=== PATIENT | male | born 1955 | race Caucasian/White ===

== ENCOUNTER → 2023-10-17 11:26 | Outpatient (REF) | payer MEDICARE, OTHER, SELFPAY | LOC: RAD 11:26 | PROVIDERS: ATTENDING PHYSICIAN Family Medicine | DX: M54.6 Pain in thoracic spine (principal); K59.00 Constipation, unspecified | CPT/HCPCS: 72072 ==

== ENCOUNTER → 2023-10-19 08:09 | Outpatient (REF) | payer MEDICARE, OTHER, SELFPAY ==
[2023-10-19 09:00] LABS: % Basophils 0.9 % (0-2); % Eosinophils 1.3 % (0-6); % Immature Granulocytes 0.6 % (0-0.5); % Lymphocytes 25.7 % (20.5-51.1); % Monocytes 9.8 % (1.7-9.3); % Neutrophils 61.7 % (42.2-75.2); Absolute Basophils 0.1 10^3/uL (0-0.2); Absolute Eosinophils 0.1 10^3/uL (0-0.7); Absolute Lymphocytes 1.4 10^3/uL (1.2-3.4); Absolute Monocytes 0.5 10^3/uL (0.1-0.6); Absolute Neutrophils 3.3 10^3/uL (1.4-6.5); Hematocrit 44.2 % (39.0-52.0); Hemoglobin 15.4 g/dL (13.0-18.0); Mean Corp Hgb Conc. 34.8 g/dL (33.0-37.0); Mean Platelet Volume 9.3 fL (7.4-10.4); Nucleated Red Blood Cells % 0 % (-); Platelet Count 239 10^3/uL (130-400); Red Blood Cell Count 5.14 10^6/uL (4.70-6.10); Red Cell Dist. Width 12.1 % (11.5-14.5); White Blood Cell Count 5.3 10^3/uL (4.8-10.8)
[2023-10-19 09:33] LABS: ALT (SGPT) 51 U/L (0-50); AST (SGOT) 38 U/L (17-59); Albumin 4.6 g/dl (3.5-5.0); Alkaline Phosphatase 68 U/L (38-126); Blood Urea Nitrogen 14 mg/dl (9-20); Calcium 9.4 mg/dl (8.4-10.2); Carbon Dioxide 24 mmol/L (22-30); Chloride 103 mmol/L (98-107); Glucose 131 mg/dl (70-99); HDL Cholesterol 52 mg/dl; Potassium 3.8 mmol/L (3.5-5.1); Sodium 136 mmol/L (135-145); Total Bilirubin 1.3 mg/dl (0.2-1.3); Total Cholesterol 109 mg/dl (50-199); Total Protein 7.2 g/dl (6.3-8.2); eGFR > 60.00
[2023-10-19 09:43] LABS: LDL Cholesterol, Calculated 42 mg/dl; Triglyceride 75 mg/dl (10-149); Very Low Density Lipoprotein 15 mg/dl (0-30)
[2023-10-19 10:02] LABS: PSA, Total - Screen 0.64 ng/ml (0.0-4.0)
== END ==
LOC: REG 08:09
PROVIDERS: ATTENDING PHYSICIAN Family Medicine
DX: M54.6 Pain in thoracic spine (principal); K59.00 Constipation, unspecified; E11.9 Type 2 diabetes mellitus without complications
CPT/HCPCS: 36415; 80053; 80061; 85025; G0103

== ENCOUNTER → 2023-10-27 16:53 | Outpatient (REF) | payer MEDICARE, OTHER, SELFPAY | LOC: RAD 16:53 | PROVIDERS: ATTENDING PHYSICIAN Family Medicine | DX: M54.6 Pain in thoracic spine (principal); K59.00 Constipation, unspecified | CPT/HCPCS: 76775 ==

== ENCOUNTER → 2023-11-28 10:28 | Outpatient (REF) | payer MEDICARE, OTHER, SELFPAY ==
[2023-11-28 11:35] LABS: % Basophils 0.8 % (0-2); % Eosinophils 1.6 % (0-6); % Immature Granulocytes 0.8 % (0-0.5); % Lymphocytes 15.5 % (20.5-51.1); % Monocytes 8.8 % (1.7-9.3); % Neutrophils 72.5 % (42.2-75.2); Absolute Basophils 0.1 10^3/uL (0-0.2); Absolute Eosinophils 0.1 10^3/uL (0-0.7); Absolute Immature Granulocytes 0.1 10^3/uL (0-0.05); Absolute Lymphocytes 1.3 10^3/uL (1.2-3.4); Absolute Monocytes 0.8 10^3/uL (0.1-0.6); Absolute Neutrophils 6.1 10^3/uL (1.4-6.5); Hematocrit 44.9 % (39.0-52.0); Hemoglobin 14.9 g/dL (13.0-18.0); Mean Corp Hgb Conc. 33.2 g/dL (33.0-37.0); Mean Corpuscular Volume 90.3 fL (80.0-94.0); Mean Platelet Volume 9.5 fL (7.4-10.4); Nucleated Red Blood Cells % 0 % (-); Platelet Count 230 10^3/uL (130-400); Red Blood Cell Count 4.97 10^6/uL (4.70-6.10); Red Cell Dist. Width 13.2 % (11.5-14.5); White Blood Cell Count 8.5 10^3/uL (4.8-10.8)
[2023-11-28 12:10] LABS: ALT (SGPT) 60 U/L (0-50); AST (SGOT) 32 U/L (17-59); Albumin 4.5 g/dl (3.5-5.0); Alkaline Phosphatase 79 U/L (38-126); Blood Urea Nitrogen 15 mg/dl (9-20); Calcium 9.2 mg/dl (8.4-10.2); Carbon Dioxide 22 mmol/L (22-30); Chloride 104 mmol/L (98-107); Glucose 138 mg/dl (70-99); HDL Cholesterol 64 mg/dl; LDL Cholesterol, Calculated 120 mg/dl; Potassium 4.3 mmol/L (3.5-5.1); Sodium 135 mmol/L (135-145); Total Bilirubin 1.1 mg/dl (0.2-1.3); Total Cholesterol 209 mg/dl (50-199); Total Protein 7.2 g/dl (6.3-8.2); Triglyceride 127 mg/dl (10-149); Very Low Density Lipoprotein 25 mg/dl (0-30); eGFR > 60.00
[2023-11-28 13:08] LABS: Glycohemoglobin (HgbA1c) 7.8 % (4.0-5.6)
== END ==
LOC: REG 10:28
PROVIDERS: ATTENDING PHYSICIAN Family Medicine
DX: E11.65 Type 2 diabetes mellitus with hyperglycemia (principal); M25.551 Pain in right hip
CPT/HCPCS: 36415; 80053; 80061; 83036; 85025